=== PATIENT | male | born 1990 | race Caucasian/White ===

== ENCOUNTER 2016-08-08 05:35 | Outpatient (CLI) | payer BC ==
[~2016-08-08] VITALS: Ht 190.5 cm; Wt 155.1 kg
[~2016-08-08 05:35] MED LIST: NAPR500T3 PO; ONDA4TAB8 PO
== END 2016-08-08 12:17 ==
LOC: PREOP 05:35
PROVIDERS: ATTEND Surgery
DX: Z01.818 Encounter for other preprocedural examination (principal); L05.91 Pilonidal cyst without abscess

== ENCOUNTER 2016-08-10 07:18 | Day surgery (SDC) | payer BC ==
[~2016-08-10] VITALS: Ht 190.5 cm; Wt 155.1 kg
--- NOTE | 2016-08-10 07:43 | Progress Note-Pre Operative ---
Pre-Operative Progress Note H&P Reviewed The H&P was reviewed, patient examined and no changes noted. Date Seen by Provider: Aug 10, 2016 Time Seen by Provider: 07:43 Date H&P Reviewed: Aug 10, 2016 Time H&P Reviewed: 07:43 Pre-Operative Diagnosis: pilonidal cyst HAIR HINES DO Aug 10, 2016 7:43 am
[2016-08-10] MEDS ORDERED: CATHETER FLUSH 10 ML SYR IV PRN (08:00)
[2016-08-10] MEDS ORDERED: CLINDAMYCIN 600 MG/NS 50 ML IVPB IV ONE ×2 (08:00)
[2016-08-10] MEDS ORDERED: MIDAZOLAM 2 MG/2 ML (VERSED) VIAL IV ONE (08:00)
[2016-08-10] MEDS: LACTATED RINGERS 1,000 ML IV PRN ×2 (08:17→09:32)
[2016-08-10] MEDS ORDERED: DOCU-143 PO (08:24)
[2016-08-10] MEDS ORDERED: HYDR-3812 PO (08:24)
--- NOTE | 2016-08-10 08:26 | Discharge Inst-Simple/Standard ---
Discharge Inst-Standard Patient Instructions/Follow Up Plan of Care/Instructions/FU: Follow up with Dr. Brumfield in 12-14 days Keep stools soft with stool softners Keep area clean and dry. Take a shower after each bowel movement. Activity as Tolerated: No Discharge Diet: No Restrictions Other Inst to Patient Follow up Appt: Make appointment for 12-14 days. Instructions: No lifting greater than 10 pounds. No strenuous activity. May shower in 24 hours, no tub bath or soaking. Use incentive spirometer at home as directed. No Smoking Skin/Wound Care: May remove bandages. Keep area clean and dry and dressed. Take a shower after each bowel movement. Symptoms to Report: Appetite Changes, Extremity Discoloration, Numbness/Tingling, Swelling Increased , Bleeding Excessive, Eyesight Changes, Pain Increased, Urine Color Change, Constipation(Persistent), Fever over 101 degree F, Pain/Pressure in chest, Urinating Difficulty, Cough Up/Vomit Blood, Heart Beat Irreg/Pounding, Pain/ Pressure in jaw, Vaginal Bleeding Increase, Cramps in feet or legs, Lightheadedness, Pain/Pressure in shoulder, Diarrhea(Persistent), Memory Changes Suddenly, Questions/Concerns, Weight gain consecutive days, Dizziness/ Fainting, Nausea/Vomiting, Shortness of Breath, Weight gain over 2 pounds If questions or concerns contact your physician Or seek help at emergency department. BECCA MONCADA APRN Aug 10, 2016 08:26
[2016-08-10 08:30] VITALS: BP 149/92
[2016-08-10] MEDS ORDERED: ONDANSETRON 4 MG/2 ML (SDV) Z0FRAN ONE (08:35)
[2016-08-10] MEDS ORDERED: fentaNYL INJECTION 100 MCG/2 ML AMP ONE ×2 (08:35→09:35)
[2016-08-10] MEDS ORDERED: proPOfol 200 MG/20 ML (DIPRIVAN) VIAL IV ONE ×2 (08:35→10:28)
[2016-08-10] MEDS ORDERED: LIDOCAINE 1% INJ 20 ML (XYLOCAINE) VIAL ONE (08:35)
[2016-08-10] MEDS ORDERED: BUPIVACAINE 0.5% 30 ML (SENSORCAINE) VIAL ONE (08:35)
[2016-08-10] MEDS ORDERED: MIDAZOLAM 10 MG/2 ML (VERSED) VIAL ONE (08:35)
[2016-08-10] MEDS ORDERED: DEXAMETHASONE PF 10 MG/ML (DECADRON) VIAL ONE (08:35)
[2016-08-10] MEDS ORDERED: ROCURONIUM 50 MG/5 ML (ZEMURON) VIAL IV ONE (08:35)
[2016-08-10] MEDS ORDERED: LIDOCAINE PF 2% 5 ML (XYLOCAINE) VIAL ONE (08:35)
[2016-08-10] MEDS ORDERED: SEVOFLURANE (ULTANE) 15 ML INHAL SOLN ONE ×6 (08:51→10:28)
[2016-08-10] MEDS ORDERED: MEPERIDINE (DEMEROL) INJ 50 MG/ML IVP PRN (09:30)
[2016-08-10] MEDS ORDERED: morphine INJ 10 MG/ML 1ML (SYR OR VIAL) IVP PRN (09:30)
[2016-08-10] MEDS ORDERED: ONDANSETRON 4 MG/2 ML (SDV) Z0FRAN IVP PRN (09:30)
--- NOTE | 2016-08-10 10:14 | Progress Note-Post Operative ---
Post-Operative Progess Note Surgeon (s)/Slimer (s) Surgeon HAIR HINES DO Slimer: Jean Nwagwu Pre-Operative Diagnosis recurrent pilonidal cyst Post-Operative Diagnosis same Procedure & Operative Findings Date of Procedure 08/10/16 Procedure Performed/Findings excision recurrent pilonidal cyst 13.5x6x5 cm Anesthesia Type general Estimated Blood Loss Estimated blood loss (mL): minimal Specimens/Packing Specimens Removed skin soft tissue recurrent pilonidal cyst HAIR HINES DO Aug 10, 2016 10:13 am
[2016-08-10 11:20] VITALS: BP 147/101
[2016-08-10] MEDS ORDERED: HYDROcodone/APAP 5 MG/325 MG (LORTAB) TAB PO ONE ×2 (11:30→12:00)
[2016-08-10 11:50] VITALS: BP 149/107
[2016-08-10] MEDS ORDERED: KETOROLAC 30 MG/ML VIAL IVP ONE (12:15)
[2016-08-10 12:20] VITALS: BP 139/87
--- NOTE | 2016-08-12 01:28 | OPERATIVE REPORT ---
DATE OF SERVICE: 08/10/2016 PREOPERATIVE DIAGNOSIS: Recurrent pilonidal cyst. POSTOPERATIVE DIAGNOSIS: Recurrent pilonidal cyst. PROCEDURE: Excision of recurrent pilonidal cyst 13.5 x 6 x 5 cm. SURGEON: Hair Brumfield DO. ANESTHESIA: General. ESTIMATED BLOOD LOSS: Minimal. COMPLICATIONS: None. INDICATIONS: The patient is a 25-year-old male who had previous excision of pilonidal cyst in 2007. The patient ever since still continued to have problems. He was explained risks and benefits of procedure and wished to proceed with procedure. Consent was signed in the chart. PROCEDURE: The patient was taken to the operating room. He was prepped and draped in sterile fashion. Surgical pause was performed. An elliptical incision around the existing pilonidal disease was made with measurements as noted above. Once the skin was cut through cautery used to dissect down around the pilonidal cyst, down to the presacral fascia, removing all portions of visible cyst. Once the skin and subcutaneous tissues and tissue all the way down to the presacral fascia was removed, copious amount of irrigation was used to irrigate. Hemostasis was achieved. The skin was then mobilized for closure. A 0 Prolene suture was then used to close the skin in a vertical mattress fashion. The area was then washed and dried, sterile bandages were applied. The patient tolerated the procedure well without any complications and was taken to the recovery room in stable condition. Job ID: [id number] DocumentID: [id number] Dictated Date: 08/11/2016 21:19:38 Disability Insurance Claim Examiner Date: 08/12/2016 00:35:31 Dictated By: HAIR BRUMFIELD DO
--- OUTSIDE RECORDS SUMMARY | 2016-08-14 10:30 | XMS REPORT | Continuity of Care Document ---
Author Author [facility] Organization [facility] Address Unknown Phone Unavailable Allergies Active Description Code Type Severity Reaction Onset Reported/Identified Relationship to Patient Clinical Status Yes cephalexin [id number] Drug Allergy Mild N/A 02/04/2015 Yes Sulfa (Sulfonamide Antibiotics) [id number] Drug Allergy Mild RASH, THROAT SW 02/04/2015 Medications Problems Date Dx Coded Attending Type Code Diagnosis Diagnosed By 07/31/2014 Ot 685.1 07/31/2014 Ot V72.83 07/31/2014 Ot V74.8 07/31/2014 Ot 566 11/15/2014 Ot 566 11/19/2014 CRYSTAL CORREA, SONA Nieves Ot 729.5 02/04/2015 ELEANOR LOCKETT DO Ot R25.8 OTHER ABNORMAL INVOLUNTARY MOVEMENTS 2015 ELIGIO DO, AMANDA K Ot R51 HEADACHE 2015 ELIGIO DO, AMANDA K Ot S06.0X0A CONCUSSION WITHOUT LOSS OF CONSCIOUSNESS 2015 ELIGIO DO, AMANDA K Ot W22.09XA STRIKING AGAINST OTHER STATIONARY OBJECT 2015 ELIGIO DO, AMANDA K Ot Y92.[address] [facility] [address] IN [facility] NON-INSTITUT (PRIVATE 2015 ELIGIO DO, AMANDA K Ot Y99.8 OTHER EXTERNAL CAUSE STATUS 09/06/2015 ELIGIO DO, AMANDA K Ot R51 HEADACHE 09/06/2015 ELIGIO DO, AMANDA K Ot S06.0X0A CONCUSSION WITHOUT LOSS OF CONSCIOUSNESS 09/06/2015 ELIGIO DO, AMANDA K Ot W22.09XA STRIKING AGAINST OTHER STATIONARY OBJECT 09/06/2015 ELIGIO DO, AMANDA K Ot Y92.009 [facility] [address] IN [facility] NON-INSTITUT (PRIVATE 09/06/2015 ELIGIO DO, AMANDA K Ot Y99.8 OTHER EXTERNAL CAUSE STATUS 01/06/2016 ELIGIO DO, AMANDA K Ot I10 ESSENTIAL (PRIMARY) HYPERTENSION 01/06/2016 ELIGIO DO, AMANDA K Ot R10.32 LEFT LOWER QUADRANT PAIN 01/06/2016 ELIGIO DO, AMANDA K Ot I10 ESSENTIAL (PRIMARY) HYPERTENSION 01/06/2016 ELIGIO DO, AMANDA K Ot R10.32 LEFT LOWER QUADRANT PAIN 01/07/2016 ELIGIO DO, AMANDA K Ot I10 ESSENTIAL (PRIMARY) HYPERTENSION 01/07/2016 ELIGIO DO, AMANDA K Ot R10.32 LEFT LOWER QUADRANT PAIN 01/11/2016 ELIGIO DO, AMANDA K Ot I10 ESSENTIAL (PRIMARY) HYPERTENSION 01/11/2016 ELIGIO DO, AMANDA K Ot R10.32 LEFT LOWER QUADRANT PAIN Procedures Results Test Result Range Complete urinalysis with reflex to culture - 01/05/16 23:15 Urine color determination YELLOW NRG Urine clarity determination CLEAR NRG Urine pH measurement by test strip 6 5- 9 Specific gravity of urine by test strip 1.020 1.016-1.022 Urine protein assay by test strip, semi-quantitative 1+ NEGATIVE Urine glucose detection by automated test strip NEGATIVE NEGATIVE Erythrocytes detection in urine sediment by light microscopy NEGATIVE NEGATIVE Urine ketones detection by automated test strip NEGATIVE NEGATIVE Urine nitrite detection by test strip NEGATIVE NEGATIVE Urine total bilirubin detection by test strip NEGATIVE NEGATIVE Urine urobilinogen measurement by automated test strip (mass/volume) NORMAL NORMAL Urine leukocyte esterase detection by dipstick NEGATIVE NEGATIVE Automated urine sediment erythrocyte count by microscopy (number/high power field) NONE NRG Automated urine sediment leukocyte count by microscopy (number/high power field ) NONE NRG Bacteria detection in urine sediment by light microscopy NEGATIVE NRG Squamous epithelial cells detection in urine sediment by light microscopy RARE NRG Crystals detection in urine sediment by light microscopy NONE NRG Casts detection in urine sediment by light microscopy NONE NRG Mucus detection in urine sediment by light microscopy NEGATIVE NRG Complete urinalysis with reflex to culture NO NRG Complete blood count (CBC) with automated white blood cell (WBC) differential - 01/05/16 23:25 Blood leukocytes automated count (number/volume) 10.8 10*3/ uL 4.3-11.0 Blood erythrocytes automated count (number/volume) 5.11 10*6 /uL 4.35-5.85 Venous blood hemoglobin measurement (mass/volume) 14.6 g/dL 13.3-17.7 Blood hematocrit (volume fraction) 42 % 40-54 Automated erythrocyte mean corpuscular volume 82 [foz_us] 80-99 Automated erythrocyte mean corpuscular hemoglobin (mass per erythrocyte) 29 pg 25-34 Automated erythrocyte mean corpuscular hemoglobin concentration measurement ( mass/volume) 35 g/dL 32-36 Automated erythrocyte distribution width ratio 13.8 % 10.0-14.5 Automated blood platelet count (count/volume) 237 10*3/uL 130-400 Automated blood platelet mean volume measurement 10.8 [foz_ us] 7.4-10.4 Automated blood neutrophils/100 leukocytes 56 % 42-75 Automated blood lymphocytes/100 leukocytes 34 % 12-44 Blood monocytes/100 leukocytes 9 % 0-12 Automated blood eosinophils/100 leukocytes 1 % 0-10 Automated blood basophils/100 leukocytes 0 % 0-10 Blood neutrophils automated count (number/volume) 6.0 10*3 1.8-7.8 Blood lymphocytes automated count (number/volume) 3.6 10*3 1.0-4.0 Blood monocytes automated count (number/volume) 1.0 10*3 0.0-1.0 Automated eosinophil count 0.1 10*3/uL 0.0-0.3 Automated blood basophil count (count/volume) 0.0 10*3/uL 0.0-0.1 Comprehensive metabolic panel - 01/05/16 23:25 Serum or plasma sodium measurement (moles/volume) 141 mmol/ L 135-145 Serum or plasma potassium measurement (moles/volume) 3.9 mmol/L 3.6-5.0 Serum or plasma chloride measurement (moles/volume) 107 mmol /L 98-107 Carbon dioxide 24 mmol/L 21-32 Serum or plasma anion gap determination (moles/volume) 10 mmol/L 5-14 Serum or plasma urea nitrogen measurement (mass/volume) 16 mg/dL 7-18 Serum or plasma creatinine measurement (mass/volume) 0.85 mg /dL 0.60-1.30 Serum or plasma urea nitrogen/creatinine mass ratio 19 NRG Serum or plasma creatinine measurement with calculation of estimated glomerular filtration rate > NRG Serum or plasma glucose measurement (mass/volume) 103 mg/dL 70-105 Serum or plasma calcium measurement (mass/volume) 9.5 mg/dL 8.5-10.1 Serum or plasma total bilirubin measurement (mass/volume) 0.9 mg/dL 0.1-1.0 Serum or plasma alkaline phosphatase measurement (enzymatic activity/volume) 76 U/L 40-136 Serum or plasma aspartate aminotransferase measurement (enzymatic activity/ volume) 38 U/L 5-34 Serum or plasma alanine aminotransferase measurement (enzymatic activity/volume ) 76 U/L 0-55 Serum or plasma protein measurement (mass/volume) 7.5 g/dL 6.4-8.2 Serum or plasma albumin measurement (mass/volume) 4.5 g/dL 3.2-4.5 Serum or plasma amylase measurement (enzymatic activity/volume) - 01/05/16 23: 25 Serum or plasma amylase measurement (enzymatic activity/volume) 43 U/L 25-125 Lipase - 01/05/16 23:25 Lipase 8 U/L 8-78 Acute hepatitis panel - 01/05/16 23:25 Confirmatory quantitative serum or plasma hepatitis B virus surface antigen measurement Non-Reactive Non-Reactive Hepatitis A virus IgM antibody assay Non-Reactive Non-Reactive Hepatitis B virus core IgM antibody assay Non-Reactive Non-Reactive Serum hepatitis C virus antibody detection Non-Reactive Non-Reactive Methicillin resistant Staphylococcus aureus (MRSA) screening culture - 07:55 Methicillin resistant Staphylococcus aureus (MRSA) screening culture NEG NRG Encounters ACCT No. Visit Date/Time Discharge Status Pt. Type Provider Facility Loc./Unit Complaint [id number] 08/10/2016 07:18:00 2016 13:10:00 DIS Outpatient HAIR HINES DO [facility] SDC PILONIDAL CYST [id number] 08/08/2016 05:35:00 2016 12:17:00 DIS Outpatient HAIR HINES DO [facility] PREOP PILONIDAL CYST [id number] 01/05/2016 22:47:00 2015 01:01:00 DIS Emergency AMANDA DEL VALLE DO [facility] ER ABD PAIN [id number] 2015 19:36:00 2015 21:18:00 DIS Emergency AMANDA DEL VALLE DO [facility] ER POSS CONCUSSION [id number] 02/04/2015 18:06:00 2014 21:39:00 DIS Emergency ELEANOR LOCKETT DO [facility] ER UNABLE TO MOVE JAW [id number] 11/15/2014 00:04:00 2014 02:16:00 DIS Emergency SONA ROJAS MD [facility] ER [id number] 07/31/2014 01:56:00 Document Registration [id number] 07/16/2009 16:54:00 Document Registration [id number] 04/23/2009 09:36:00 Document Registration
--- OUTSIDE RECORDS SUMMARY | 2016-08-14 10:30 | XMS REPORT ---
Author Author NORMA CASTANON Organization [employer] Address Unknown Phone Unavailable Care Team Providers Care Direct Marketing Coordinator Name Role Phone NORMA CASTANON CP Unavailable Allergies, Adverse Reactions, Alerts Substance Reaction Event Type sulfa drugs Info Not Available Drug Allergy Keflex Info Not Available Drug Allergy Problems Problem Type Condition Code Onset Dates Condition Status Assessment Cyst of buttocks L72.9 Active Problem High blood pressure (not hypertension) R03.0 Active Problem Obesity (BMI 35.0-39.9 without comorbidity) E66.01 Active Problem Anxiety associated with depression F41.8 Active Assessment High blood pressure (not hypertension) R03.0 Active Assessment Obesity (BMI 35.0-39.9 without comorbidity) E66.01 Active Problem Cyst of buttocks L72.9 Active Assessment Anxiety associated with depression F41.8 Active Medications Medication Code System Code Instructions Start Date End Date Status Dosage Celexa [facility] [address]-40 20 MG Orally Once a day Jan 21, 2015 1 tablet Clonidine HCl [facility] [address]-03 0.1 MG Orally twice a day as needed for anxiety Jan 21, 2015 1 tablet Procedures Procedure Coding System Code Date Office Visit, New Pt., Level 4 CPT-4 90407 Jan 21, 2015 Vital Signs Date/Time: Jan 21, 2015 Temperature 98.7 F Weight 308.7 lbs Height 75.0 in BMI 38.58 Index Blood Pressure Diastolic 96 mmHg Blood Pressure Systolic 158 mmHg Cardiac Monitoring Heart Rate 102 bpm Results No Known Results Summary Purpose [employer] Submission
--- OUTSIDE RECORDS SUMMARY | 2016-08-14 10:30 | XMS REPORT ---
Author Author NORMA CASTANON Organization [employer] Address Unknown Phone Unavailable Care Team Providers Care Operations And Maintenance Manager Name Role Phone NORMA CASTANON CP Unavailable Allergies No Known Allergies Problems Problem Type Condition Code Onset Dates Condition Status Problem High blood pressure (not hypertension) R03.0 Active Problem Obesity (BMI 35.0-39.9 without comorbidity) E66.01 Active Problem Anxiety associated with depression F41.8 Active Problem Cyst of buttocks L72.9 Active Medications No Known Medications Results No Known Results Summary Purpose [employer] Submission
== END 2016-08-10 13:10 | disposition home or self-care (01) ==
LOC: SDC 07:18
PROVIDERS: ATTEND Surgery
DX: L05.91 Pilonidal cyst without abscess (principal); I10 Essential (primary) hypertension; E66.01 Morbid (severe) obesity due to excess calories; Z68.41 Body mass index [BMI] 40.0-44.9, adult
CPT/HCPCS: 87081; 94664

== ENCOUNTER 2016-08-16 04:01 | Emergency (ER) | payer BC ==
[~2016-08-16] VITALS: Ht 190.5 cm; Wt 157.9 kg
[~2016-08-16 04:01] MED LIST changes: +DOCU-143 PO; +HYDR-3812 PO
--- OUTSIDE RECORDS SUMMARY | 2016-08-16 04:09 | XMS REPORT | Continuity of Care Document ---
Author Author [facility] Organization [facility] Address Unknown Phone Unavailable Allergies Active Description Code Type Severity Reaction Onset Reported/Identified Relationship to Patient Clinical Status Yes cephalexin [id number] Drug Allergy Mild N/A 02/04/2015 Yes Sulfa (Sulfonamide Antibiotics) [id number] Drug Allergy Mild RASH, THROAT SW 02/04/2015 [...] 2015 ELIGIO DO, AMANDA K Ot Y92.009 [facility] [address] IN [facility] NON-INSTITUT (PRIVATE 2015 ELIGIO DO, AMANDA K Ot Y99.8 OTHER EXTERNAL CAUSE STATUS 09/06/2015 ELIGIO DO, AMANDA K Ot R51 HEADACHE 09/06/2015 LEIGIO DO, AMANDA K Ot S06.0X0A CONCUSSION WITHOUT LOSS OF CONSCIOUSNESS 09/06/2015 ELIGIO DO, AMANDA K Ot W22.09XA STRIKING AGAINST OTHER STATIONARY OBJECT 09/06/2015 ELIGIO DO, AMANDA K Ot Y92.009 [facility] [address] IN [facility] NON-INSTITUT (PRIVATE 09/06/2015 ELIGIO DO, AMANDA K [...] Status Pt. Type Provider Facility Loc./Unit Complaint [id number] 08/10/2016 07:18:00 2016 13:10:00 DIS Outpatient HAIR HINES DO [facility] SDC PILONIDAL CYST [id number] 08/08/2016 05:35:00 2016 12:17:00 DIS Outpatient HAIR HINES DO [facility] PREOP PILONIDAL CYST [id number] 01/05/2016 22:47:00 2015 01:01:00 DIS Emergency AMANDA DEL VALLE DO [facility] ER ABD PAIN [id number] 2015 19:36:00 2015 21:18:00 DIS Emergency AMANDA DEL VALLE DO [facility] ER POSS CONCUSSION [id number] 02/04/2015 18:06:00 2014 21:39:00 DIS Emergency ELEANOR LOCKETT DO [facility] ER UNABLE TO MOVE JAW [id number] 11/15/2014 00:04:00 2014 02:16:00 DIS Emergency SONA ROJAS MD [facility] ER [id number] 07/31/2014 01:56:00 Document Registration [id number] 07/16/2009 16:54:00 Document Registration [id number] 04/23/2009 09:36:00 Document Registration
[2016-08-16] MEDS ORDERED: CLIN300C11 PO (04:21)
--- NOTE | 2016-08-16 04:21 | ED Integumentary General ---
General Stated Complaint: POST OP PAIN & BLEEDING,POPPED STITCH POSS Source: patient History of Present Illness Time seen by provider: 04:07 Initial Comments PT HAD PILONIDAL CYST/ABSCESS REMOVED BY DR. HINES ON Sunday08/10/16 HAS BEEN ON CLINDAMYCIN 300 MG QID AND IS ALMOST OUT PT RAN OUT OF HYDROCODONE YESTERDAY AM PT HAS NOT HAD FEVER HAS HAD A LITTLE BIT OF DRAINAGE OFF AND ON, BUT HAS BEEN BLEEDING FROM UPPER PART OF INCISION OFF AND ON SINCE NOON TODAY--BLEEDING IS MOSTLY WHEN HE IS DOING SOME PHYSICAL ACTIVITY PRIOR TO ARRIVAL IT STARTED BLEEDING MORE. THINKS HE POSSIBLY BROKE A STITCH. HAS FOLLOW UP APPOINTMENT WITH DR. HINES 08/23/16 Allergies and Home Medications Allergies Coded Allergies: Sulfa (Sulfonamide Antibiotics) (Unverified Allergy, Mild, RASH, THROAT SWELLING, 02/04/15) cephalexin (Unverified Allergy, Mild, 02/04/15) Home Medications Clindamycin HCl 300 Mg Capsule, 300 MG PO QID, #40 Prescribed by: AMANDA DEL VALLE on 08/16/16 0421 Docusate Sodium 100 Mg Capsule, 100 MG PO BID, #60 Prescribed by: BECCA LOPEZ NWMARTIN on 08/10/16 0824 Constitutional: no symptoms reported, No fever Skin: see HPI Past Hbpynvr-Ramozm-Pvuzzc Hx Patient Social History Recent Foreign Travel: No Contact w/Someone Who Travel: No Recent Hopitalizations: No Immunizations Up To Date Tetanus Booster (TDap): More than 5yrs Seasonal Allergies Seasonal Allergies: No Surgeries HX Surgeries: Yes (HERNIA, CIRCUMCISION, ORCHIOPEXY, PILONIDAL CYST) Surgeries: Abdominal, Testicular Respiratory Hx Respiratory Disorders: No Cardiovascular Hx Cardiac Disorders: Yes Cardiac Disorders: Hypertension Neurological Hx Neurological Disorders: No Reproductive System Hx Reproductive Disorders: No Sexually Transmitted Disease: No Genitourinary Hx Genitourinary Disorders: No Gastrointestinal Hx Gastrointestinal Disorders: No Musculoskeletal Hx Musculoskeletal Disorders: No Endocrine Hx Endocrine Disorders: Yes (OBESITY) HEENT HX ENT Disorders: Yes (GLASSES) Loss of Vision: Bilateral Hearing Impairment: Denies Cancer Hx Cancer: No Psychosocial Hx Psychiatric Problems: Yes Behavioral Health Disorders: Anxiety, Depression Integumentary HX Skin/Integumentary Disorder: Yes (PILONIDAL CYST) Blood Transfusions Hx Blood Disorders: No Adverse Reaction to a Blood Tr: No Physical Exam Vital Signs Capillary Refill : General Appearance: no apparent distress, obese Skin: normal color, warm/dry, other (MIDLINE INCISION AT TOP OF BUTTOCKS IS CLEAN AND DRY. HAS A BLOOD-SATURATED PAPER TOWEL OVER THE WOUND. NO ACTIVE BLEEDING AT THIS TIME. ALL SUTURES ARE INTACT. NO OBVIOUS AREA OF DEHISCENCE, BUT FEMALE WITH PT POINTS TO AN AREA IN SUPERIOR PORTION OF THE WOUND THE SITE WHERE IT WAS BLEEDING. NO AREAS OF ERTHEMA OR INDURATION, NO AREAS OF FLUCTUANCE. NO SWELLING. NO SIGNIFICANT TENDERNESS. NO SIGNS OF INFECTION. ) Suture Removal/Wound Recheck : Suture Removal/Wound Recheck: Dry/sterile dressing-appl Progress/Results/Core Measures Results/Orders My Orders Orders - AMANDA DEL VALLE DO Wound Dressing-Ed (08/16/16 04:18) Departure Impression Impression: Primary Impression: Post-op bleeding Additional Impression: Post-op pain Disposition: 01 HOME, SELF-CARE Condition: Stable Departure-Patient Inst. Referrals: HAIR HINES,LOCAL PHYSICIAN (PCP) Primary Care Physician Patient Instructions: POST OP BLEEDING, Surgical Wound (DC) Add. Discharge Instructions: CLEAN AREA TWICE A DAY WITH ANTIBACTERIAL SOAP AND WATER, APPLY FRESH DRESSING TWICE A DAY OR MORE OFTEN IF NEEDED FOLLOW ALL POST OP INSTRUCTIONS FROM DR. HINES CALL HIS OFFICE TODAY FOR FURTHER INSTRUCTIONS TYLENOL AND MOTRIN NEEDED FOR PAIN Scripts Clindamycin HCl (Clindamycin HCl) 300 Mg Capsule 300 MG PO QID for FOR INFECTION, #40 CAP Prov: AMANDA DEL VALLE DO 08/16/16 AMANDA DEL VALLE DO Aug 16, 2016 04:21
[2016-08-16 04:50] VITALS: BP 164/88
== END 2016-08-16 04:50 | disposition home or self-care (01) ==
LOC: EDUNIT# 04:01 → ER 04:04
DX: G89.18 Other acute postprocedural pain (principal)
CPT/HCPCS: 99282

== ENCOUNTER 2017-07-17 13:07 | Emergency (ER) | payer BC ==
[~2017-07-17] VITALS: Ht 190.5 cm; Wt 157.9 kg
[~2017-07-17 13:07] MED LIST changes: +ACHD5005 PO; +CLIN300C11 PO; -HYDR-3812 PO; +NAPR-915 PO; -NAPR500T3 PO
[2017-07-17 15:24] VITALS: BP 167/85
--- NOTE | 2017-07-17 16:52 | ED EENT ---
History of Present Illness General Chief Complaint: Oral/Throat Problems Stated Complaint: MENDEZ/N/THROAT SORE Nursing Triage Note: PT CO OF SORETHROAT X 1 WEEK AND MENDEZ TODAY Source: patient Exam Limitations: no limitations History of Present Illness Date Seen by Provider: July 17, 2017 Time Seen by Provider: 16:50 Initial Comments To ER with a sore throat headache and lightheadedness for one week. No fevers. No cough. Timing/Duration: gradual Severity: moderate Location: throat Associated Symptoms: sore throat Allergies and Home Medications Allergies Coded Allergies: Sulfa (Sulfonamide Antibiotics) (Unverified Allergy, Mild, RASH, THROAT SWELLING, 02/04/15) cephalexin (Unverified Allergy, Mild, 02/04/15) Home Medications Clindamycin HCl 300 Mg Capsule, 300 MG PO QID Prescribed by: AMANDA DEL VALLE on 08/16/16 0421 Docusate Sodium 100 Mg Capsule, 100 MG PO BID Prescribed by: BECCA ALBA on 08/10/16 0824 Patient Home Medication List Home Medication List Reviewed: Yes Review of Systems Constitutional: see HPI Eyes: No Symptoms Reported Ears: No Symptoms Reported Nose: no symptoms reported Mouth: no symptoms reported Throat: see HPI, pain Respiratory: no symptoms reported Cardiovascular: no symptoms reported Musculoskeletal: no symptoms reported Skin: no symptoms reported Neurological: No Symptoms Reported Hematologic/Lymphatic: No Symptoms Reported Past Bthfohy-Hvlymi-Iwxxkb Hx Patient Social History Alcohol Use: Denies Use Recreational Drug Use: No Smoking Status: Never a Smoker Recent Foreign Travel: No Contact w/Someone Who Travel: No Recent Infectious Disease Expo: No Recent Hopitalizations: No Physical Abuse: No Sexual Abuse: No Immunizations Up To Date Tetanus Booster (TDap): More than 5yrs Seasonal Allergies Seasonal Allergies: No Past Medical History Surgeries: Yes (HERNIA, CIRCUMCISION, ORCHIOPEXY, PILONIDAL CYST) Abdominal, Testicular Respiratory: No Cardiac: Yes Hypertension Neurological: No Reproductive Disorders: No Sexually Transmitted Disease: No Gastrointestinal: No Musculoskeletal: No Endocrine: No Loss of Vision: Bilateral Hearing Impairment: Denies Cancer: No Psychosocial: Yes Anxiety, Depression Nursing Suicide Risk Score: 0 Integumentary: Yes (PILONIDAL CYST) Blood Disorders: No Adverse Reaction/Blood Tranf: No Physical Exam Vital Signs Vital Signs - First Documented 07/17/17 15:24 Temp 99.0 Pulse 63 Resp 20 B/P (MAP) 167/85 (112) Pulse Ox 97 General Appearance: WD/WN, no apparent distress, obese Eyes: bilateral eye normal inspection, bilateral eye PERRL, bilateral eye EOMI Ears: bilateral ear auricle normal, bilateral ear canal normal, bilateral ear TM normal Mouth/Throat: normal mouth inspection, pharynx normal; No pharynx swelling, No pharynx tenderness, No tongue swollen, No tonsillar exudate Neck: non-tender, full range of motion; No lymphadenopathy (R), No lymphadenopathy (L) Cardiovascular: regular rate, rhythm, no murmur Respiratory: normal breath sounds, no respiratory distress, no accessory muscle use Gastrointestinal: normal bowel sounds, non tender Neurologic/Psychiatric: alert, normal mood/affect, oriented x 3 Skin: normal color, warm/dry Progress/Results/Core Measures Results/Orders Lab Results Laboratory Tests Test 07/17/17 15:25 Range/Units Group A Streptococcus Screen NEGATIVE NEGATIVE My Orders Orders - CAL ELAINE APRN Rapid Strep A Screen (07/17/17 15:31) Cbc With Automated Diff (07/17/17 16:34) Monotest (07/17/17 16:34) Comprehensive Metabolic Panel (07/17/17 16:38) Vital Signs/I&O 07/17/17 07/17/17 15:24 15:30 Temp 99.0 99.0 Pulse 63 63 Resp 20 20 B/P (MAP) 167/85 (112) 167/85 (112) Pulse Ox 97 97 Blood Pressure Mean: 112 Departure Communication (Admissions) 1719- his labs have just been drawn and are not back yet. He states that he has to go to work and would like to leave with be called with his results. He does appear to be clinically stable also I will discharge him at this time before having labs back. Impression Primary Impression: Sore throat Additional Impression: Malaise Disposition: 01 HOME, SELF-CARE Condition: Stable Admissions Decision to Admit/Date: July 17, 2017 Departure-Patient Inst. Decision time for Depature: 17:21 Referrals: NO,LOCAL PHYSICIAN (PCP/Family) Primary Care Physician Patient Instructions: Sore Throat in Adults CAL ELAINE APRN July 17, 2017 16:52
[2017-07-17 17:23] VITALS: BP 167/85
[2017-07-17 17:29] LABS: BASOPHILS % (AUTO) 0 % (0-10); EOSINOPHILS # (AUTO) 0.1 10^3/uL (0.0-0.3); EOSINOPHILS % (AUTO) 1 % (0-10); HEMATOCRIT 46 % (40-54); HEMOGLOBIN 15.7 G/DL (13.3-17.7); LYMPHOCYTES # (AUTO) 2.8 X 10^3 (1.0-4.0); LYMPHOCYTES % (AUTO) 31 % (12-44); MEAN CORPUSCULAR HEMOGLOBIN 29 PG (25-34); MEAN CORPUSCULAR HGB CONC 35 G/DL (32-36); MEAN CORPUSCULAR VOLUME 84 FL (80-99); MEAN PLATELET VOLUME 10.6 FL (7.4-10.4); MONOCYTES # (AUTO) 0.5 X 10^3 (0.0-1.0); MONOCYTES % (AUTO) 5 % (0-12); NEUTROPHILS # (AUTO) 5.5 X 10^3 (1.8-7.8); NEUTROPHILS % (AUTO) 62 % (42-75); PLATELET COUNT 277 10^3/uL (130-400); RED BLOOD COUNT 5.43 10^6/uL (4.35-5.85); RED CELL DISTRIBUTION WIDTH 13.1 % (10.0-14.5); WHITE BLOOD COUNT 8.9 10^3/uL (4.3-11.0)
[2017-07-17 17:50] LABS: ALANINE AMINOTRANSFERASE 86 U/L (0-55); ALBUMIN 4.6 GM/DL (3.2-4.5); ALKALINE PHOSPHATASE 82 U/L (40-136); BILIRUBIN,TOTAL 0.8 MG/DL (0.1-1.0); BUN/CREATININE RATIO 9; CALCIUM 9.7 MG/DL (8.5-10.1); CARBON DIOXIDE 22 MMOL/L (21-32); CHLORIDE 106 MMOL/L (98-107); GFR ESTIMATED > 60; GLUCOSE 88 MG/DL (70-105); POTASSIUM 4.1 MMOL/L (3.6-5.0); SODIUM 139 MMOL/L (135-145); TOTAL PROTEIN 7.9 GM/DL (6.4-8.2)
== END 2017-07-17 17:23 | disposition home or self-care (01) ==
LOC: EDUNIT# 13:07 → ER 13:10
DX: J02.9 Acute pharyngitis, unspecified (principal); R53.81 Other malaise; I10 Essential (primary) hypertension; F41.9 Anxiety disorder, unspecified; F32.9 Major depressive disorder, single episode, unspecified; Z87.19 Personal history of other diseases of the digestive system; Z88.2 Allergy status to sulfonamides; Z88.1 Allergy status to other antibiotic agents
CPT/HCPCS: 36415; 80053; 85025; 86308; 87430; 99282